=== PATIENT | female | born 1980 | race Caucasian/White ===

== ENCOUNTER → 2017-01-07 | Outpatient (CLI) | payer BC ==
[~2017-01-07] MED LIST: BUPR-79 PO; BUSP1TAB46 PO; NIFE30TA83 PO
--- NOTE | 2017-01-07 11:55 | DIAGNOSTIC IMAGING REPORT ---
CHEST 2 VIEWS ROUTINE HISTORY: 36 years-old Female N20.0 Nephrolithiasis preoperative exam COMPARISON: CT abdomen and pelvis 12/13/2016 TECHNIQUE: PA and lateral views of the chest FINDINGS: Cardiomediastinal and hilar silhouettes are within normal limits. No pneumothorax, pleural effusion, focal airspace consolidation or overt pulmonary edema. Bones of the chest are grossly intact. Cholecystectomy clips noted. IMPRESSION: No acute cardiopulmonary process. The above report was generated using voice recognition software. It may contain grammatical, syntax or spelling errors. Electronically signed by: Kumar Hunter M.D. 01/07/2017 11:53 AM Dictated Date/Time: 01/07/2017 11:53 AM
[2017-01-07 12:06] LABS: BASO % 0.5 %; BASO ABS # 0.03 K/uL (0-0.2); COMPLETE YES; EOS % 3.7 %; HEMATOCRIT 40.1 % (37-47); IG% 0.2 %; LYMPH % 34.9 %; LYMPH ABS # 2.17 K/uL (1.2-3.4); MEAN CELL VOLUME 90.1 fL (80-100); MEAN CORPUSCULAR HEMOGLOBIN 30.3 pg (25-34); MEAN CORPUSCULAR HGB CONC 33.7 g/dl (32-36); MEAN PLATELET VOLUME 9.9 fL (7.4-10.4); MONO % 7.1 %; NEUT % 53.6 %; PLATELET COUNT 292 K/uL (130-400); RED BLOOD COUNT 4.45 M/uL (4.2-5.4); WHITE BLOOD COUNT 6.21 K/uL (4.8-10.8)
[2017-01-07 12:15] LABS: URINE APPEARANCE CLEAR (CLEAR); URINE BILIRUBIN NEG (NEG); URINE COLOR YELLOW; URINE EPITHELIAL CELL AUTO 20-30 /lpf (0-5); URINE NITRITE NEG (NEG); URINE SPECIFIC GRAVITY 1.026 (1.000-1.030); UROBILINOGEN NEG (NEG)
[2017-01-07 12:22] LABS: MANUAL MICROSCOPIC REQUIRED? NO; REVIEW REQ? NO
[2017-01-07 12:37] LABS: BLOOD UREA NITROGEN 17 mg/dl (7-18); BUN/CREATININE RATIO 20.9 (10-20); CARBON DIOXIDE 28 mmol/L (21-32); CHLORIDE 106 mmol/L (98-107); CREATININE 0.83 mg/dl (0.60-1.20); POTASSIUM 3.6 mmol/L (3.5-5.1); SODIUM 139 mmol/L (136-145)
== END | disposition home or self-care (01) ==
LOC: C.LAB 11:17
PROVIDERS: ATTEND Urology
DX: N20.0 Calculus of kidney (principal)

== ENCOUNTER → 2017-01-20 | Day surgery (SDC) | payer BC ==
[2017-01-03 11:57] VITALS: Ht 165.1 cm; Wt 67.3 kg
[~2017-01-20] VITALS: Ht 165.1 cm; Wt 67.3 kg
[~2017-01-20] MED LIST changes: +ATROPINE SULFATE 0.1 MG/ML 5ML SYR IV PRN; +CIPROFLOXACIN / D5W 400 MG IV SCH; +DEXAMETHASONE SOD INJ 4 MG/ML VIAL ONE; +FENTANYL CITRATE INJ 50 MCG/1 ML 2 ML VIAL IV PRN; +FENTANYL CITRATE INJ 50 MCG/1 ML 2 ML VIAL ONE; +HYDR-5688 PO; +HYDROCODONE/ACETAMOPHEN 5/325MG TAB PO PRN; +LABETALOL HCL IV 5 MG/ML 20ML IV PRN; +LACTATED RINGER'S 1000ML 1,000 ML IV SCH; +LIDOCAINE HCL 2% 2 ML VIAL (20MG/ML) ONE; +MIDAZOLAM HCL 1 MG/ML 2ML VIAL ONE; +ONDANSETRON INJ 2 MG/ML 2 ML VIAL IV PRN; +ONDANSETRON INJ 2 MG/ML 2 ML VIAL ONE; +PROPOFOL IV EMULSION 10 MG/ML 20 ML VIAL IV ONE; +SODIUM CHLORIDE 0.9% 1000ML 1,000 ML IV SCH
--- NOTE | 2017-01-20 06:57 | History & Physical Bridge Note ---
H&P Re-Evaluation Bridge Note: I have examined the patient, reviewed the History & Physical and in the interval since the performance of the History & Physical I have noted the following changes of clinical significance: No changes noted
--- NOTE | 2017-01-20 07:40 | Discharge Instructions-SurgCtr ---
Discharge Instructions Date of Service Jan 20, 2017. Visit Reason for Visit: Stones Discharge Discharge Diagnosis / Problem: stones Discharge Goals Goal(s): Decrease discomfort, Improve function, Increase independence, Improve disease control Activity Recommendations Activity Limitations: resume your previous activity Lifting Limitations: none Exercise/Sports Limitations: none May Resume Sexual Activity: when tolerated Shower/Bathe: no limitations Driving or Machine Use: no limitations Anesthesia . Post Anesthesia Instructions: If you have had General Anesthesia or IV Sedation: * Do not drive today. * Resume driving when surgeon permits. * Do not make important decisions or sign legal documents today. * Call surgeon for: 1. Temperature elevations greater than 101 degrees F. 2. Uncontrollable pain. 3. Excessive bleeding. 4. Persistent nausea and vomiting. 5. Medication intolerance (nausea, vomiting or rash). * For nausea and vomiting use only clear liquids such as: tea, soda, bouillon until nausea subsides, then gradually increase diet as tolerated. * If you have any concerns or questions, call your surgeon's office. If physician is unavailable and it is an emergency, call 911 or go to the nearest emergency room. . Instructions / Follow-Up Instructions / Follow-Up Please keep your previously scheduled follow up appointment Diet Recommendations Home Diet: no limitations Pending Studies Studies pending at discharge: no Medical Emergencies . Who to Call and When: Medical Emergencies: If at any time you feel your situation is an emergency, please call 911 immediately. . Non-Emergent Contact Non-Emergency issues call your: Urologist Call Non-Emergent contact if: you have a fever, temperature is above 101.5 . . "Provider Documentation" section prepared by Berto Riley. . [place] Drug Monitoring Program Search Results: patient reviewed within database, no issues identified
--- NOTE | 2017-01-20 08:03 | [facility] Operative Report ---
Operative Report Operative Date Jan 20, 2017. Pre-Operative Diagnosis Left Renal Stone Post-Operative Diagnosis Same Procedure(s) Performed Left Extracorporeal Shock Wave Lithotripsy Surgeon Dr. Cem Martin Certified Nurse Midwife Surgeon(s) None Estimated Blood Loss 0 mL Findings Left renal stone Specimens None Drains none Anesthesia Gen. Complication(s) None Disposition Recovery Room / PACU (stable) Indications Left renal stone Description of Procedure The patient was identified in the preoperative holding area, appropriate informed consent was reviewed and completed and the patient was transported to the operating suite. Upon arrival appropriate preoperative antibiotics were administered and general anesthesia induced. The patient was placed in supine position and the stone was localized under fluoroscopy. A total of 2500 shocks were delivered to the stone. There appeared to be good fragmentation of the stone. Details of this procedure can be found on the [facility] information sheet. At the conclusion of the case the patient was extubated and taken to the PACU in stable condition. There were no complications. I attest to the content of the Intraoperative Record and any orders documented therein. Any exceptions are noted below.
[2017-01-20 08:40] VITALS: TEMP 36.4
[2017-01-20 09:11] VITALS: BP 120/77; PULSE 88; O2SAT 97
--- NOTE | 2017-01-20 09:22 | Anesthesia Progress Nt - [facility] ---
Anesthesia Post Op Note Date & Time Jan 20, 2017 at 09:22 Vital Signs Vital Signs Past 12 Hours Date Time Temp Pulse Resp B/P (MAP) Pulse Ox O2 Delivery O2 Flow Rate FiO2 01/20/17 09:11 88 16 120/77 (91) 97 Room Air 01/20/17 08:40 36.4 93 16 119/84 (96) 99 Room Air 01/20/17 08:33 92 13 01/20/17 08:33 90 13 97 01/20/17 08:31 123/90 01/20/17 08:28 95 16 01/20/17 08:28 36.8 88 16 119/80 96 Room Air 01/20/17 08:28 94 16 96 01/20/17 08:27 94 15 01/20/17 08:27 92 15 119/80 97 01/20/17 08:22 88 18 100 01/20/17 08:22 88 18 01/20/17 08:21 124/81 01/20/17 08:17 87 17 01/20/17 08:17 88 17 100 01/20/17 08:16 109/83 01/20/17 08:12 91 21 100 01/20/17 08:12 91 21 01/20/17 08:11 123/83 01/20/17 08:08 126/81 01/20/17 08:07 36.6 93 16 123/83 98 Mask 8 01/20/17 08:07 93 01/20/17 08:07 93 99 01/20/17 06:50 36.8 97 18 119/85 (96) 98 Room Air Notes Mental Status: alert / awake / arousable, participated in evaluation Pt Amnestic to Procedure: Yes Nausea / Vomiting: adequately controlled Pain: adequately controlled Airway Patency, RR, SpO2: stable & adequate BP & HR: stable & adequate Hydration State: stable & adequate Anesthetic Complications: no major complications apparent
== END | disposition home or self-care (01) ==
LOC: X.SURG 06:36
PROVIDERS: ATTEND Urology
DX: N20.0 Calculus of kidney (principal); I10 Essential (primary) hypertension; Z79.899 Other long term (current) drug therapy

== ENCOUNTER → 2017-01-20 | Outpatient (CLI) | payer BC ==
[~2017-01-20] MED LIST changes: -ATROPINE SULFATE 0.1 MG/ML 5ML SYR IV PRN; -CIPROFLOXACIN / D5W 400 MG IV SCH; -DEXAMETHASONE SOD INJ 4 MG/ML VIAL ONE; -FENTANYL CITRATE INJ 50 MCG/1 ML 2 ML VIAL IV PRN; -FENTANYL CITRATE INJ 50 MCG/1 ML 2 ML VIAL ONE; -HYDROCODONE/ACETAMOPHEN 5/325MG TAB PO PRN; -LABETALOL HCL IV 5 MG/ML 20ML IV PRN; -LACTATED RINGER'S 1000ML 1,000 ML IV SCH; -LIDOCAINE HCL 2% 2 ML VIAL (20MG/ML) ONE; -MIDAZOLAM HCL 1 MG/ML 2ML VIAL ONE; -ONDANSETRON INJ 2 MG/ML 2 ML VIAL IV PRN; -ONDANSETRON INJ 2 MG/ML 2 ML VIAL ONE; -PROPOFOL IV EMULSION 10 MG/ML 20 ML VIAL IV ONE; -SODIUM CHLORIDE 0.9% 1000ML 1,000 ML IV SCH
--- NOTE | 2017-01-20 06:55 | DIAGNOSTIC IMAGING REPORT ---
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 Postoperative changes overlying the right superior sacrum. Kidneys and renal shadows are obscured due to overlying bowel content. The calcification seen in the patient's prior CT study are not appreciated most likely due to overlap artifact. Several pelvic vascular calcifications unchanged in the prior study. IMPRESSION: 1. Nonobstructive bowel pattern. 2. Nonvisibility of the kidneys due to overlying bowel content. The above report was generated using voice recognition software. It may contain grammatical, syntax or spelling errors. Electronically signed by: Ezio Argueta M.D. 01/20/2017 6:54 AM Dictated Date/Time: 01/20/2017 6:52 AM
== END | disposition home or self-care (01) ==
LOC: C.RAD 05:47
PROVIDERS: ATTEND Urology
DX: N20.0 Calculus of kidney (principal)

== ENCOUNTER → 2017-02-08 | Outpatient (CLI) | payer BC | END | disposition home or self-care (01) | LOC: C.LABSPEC 10:44 | PROVIDERS: ATTEND Urology | DX: N20.0 Calculus of kidney (principal) ==

== ENCOUNTER → 2017-02-08 | Outpatient (CLI) | payer BC ==
--- NOTE | 2017-02-08 16:01 | DIAGNOSTIC IMAGING REPORT ---
KUB CLINICAL HISTORY: 36 years-old Female presenting with N20.0 [id number], left nephrolithiasis. TECHNIQUE: Single supine view of the abdomen was obtained. COMPARISON: 01/20/[address] from 12/13/2016. FINDINGS: Cholecystectomy clips noted. Moderate stool burden throughout the right and transverse colon. Mottled lucency in the epigastrium consistent with gastric contents. Nonobstructive bowel gas pattern. No gross pneumoperitoneum. Allowing for bowel gas and stool, bilateral renal calculi are barely visible. No gross evidence of calcifications along the courses of the ureters. Stable distribution of pelvic phleboliths. Surgical clips noted in the right lower quadrant likely from prior appendectomy. Osseous structures normal. Lung bases clear. IMPRESSION: 1. Faintly visible bilateral nephrolithiasis. No radiographic evidence of ureteral calculi. Electronically signed by: Farooq Oconnell M.D. 02/08/2017 4:00 PM Dictated Date/Time: 02/08/2017 3:57 PM
== END | disposition home or self-care (01) ==
LOC: C.RAD 15:15
PROVIDERS: ATTEND Urology
DX: N20.0 Calculus of kidney (principal)

== ENCOUNTER → 2017-03-27 | Outpatient (CLI) | payer BC ==
[~2017-03-27] MED LIST changes: +OPTIRAY 320 IV PRN
--- NOTE | 2017-03-27 11:03 | DIAGNOSTIC IMAGING REPORT ---
CT UROGRAM CLINICAL HISTORY: Hematuria. Nephrolithiasis. COMPARISON STUDY: Abdominal CT dated 12/13/2016. TECHNIQUE: Before and following the IV administration of 120 cc of Optiray 320, CT urogram of the abdomen and pelvis is performed from the lung bases to the proximal femora. Images are reviewed in the axial, sagittal, and coronal planes. IV contrast was administered without complication. A dose lowering technique was utilized adhering to the principles of ALARA. CT DOSE: 1437.24 mGycm FINDINGS: Lung bases: The heart is normal in size and without pericardial effusion. The lung bases are clear. Liver: The contrast-enhanced liver is normal in size, contour, and attenuation. There is no intrahepatic biliary ductal dilatation. The hepatic veins and portal veins are patent. Gallbladder: Surgically absent noting clips in the gallbladder fossa. Spleen: Normal in size and attenuation. Pancreas: Unremarkable. Adrenal glands: Unremarkable. Kidneys and ureters: The contrast enhanced kidneys are normal in size and without hydronephrosis. There is a 3 mm nonobstructing calculus in the lower pole of the right kidney. There are least 2 nonobstructing left renal calculi which measure up to 7 mm. The kidneys enhance and excrete symmetrically. There is no enhancing renal cortical mass lesion identified. A 1.4 cm simple cyst is identified in the interpolar right kidney. There is no evidence of urothelial lesion within the renal pelvis bilaterally or along the course of either ureter. The distal ureters are not well opacified by excreted contrast. Abdominal vasculature: The abdominal aorta is normal in course and caliber. Bowel: There is mild wall thickening and hyperemia seen involving the mucosa of the mid to distal descending colon as well as the rectosigmoid colon. Productive changes are seen in the surrounding fat. Submucosal fat deposition is seen throughout the proximal colon and in the distal small bowel. This is nonspecific but suggests chronic inflammation. No bowel obstruction is seen. The appendix is not identified and reported surgically absent. Peritoneum: There is no intraperitoneal free air or abdominal ascites. There is a small fat-containing umbilical hernia. Lymphadenopathy: None. Pelvic viscera: The bladder is decompressed and not well assessed. Small uterine fibroids are questioned. The adnexa are normal as visualized noting numerous bilateral ovarian follicles. A tampon is in place. Skeletal structures: A small hemangioma is noted in the body of L1. No lytic or blastic lesions are seen. IMPRESSION: 1. Bilateral nonobstructing renal calculi. 2. There is no enhancing renal cortical mass. There is no evidence of urothelial lesion within the renal pelvis bilaterally or along the course of the ureters. 3. The bladder was decompressed and not well evaluated. 4. Findings suggest a nonspecific colitis of the left colon. This is likely on an infectious or inflammatory basis. Clinical correlation will be required. 5. Suspect small uterine fibroids. 6. Additional findings as above. Electronically signed by: Frank Thomas M.D. 03/27/2017 11:02 AM Dictated Date/Time: 03/27/2017 10:51 AM
== END | disposition home or self-care (01) ==
LOC: C.CTS 10:08
PROVIDERS: ATTEND Urology
DX: N20.0 Calculus of kidney (principal); R31.9 Hematuria, unspecified; R93.3 Abnormal findings on diagnostic imaging of other parts of digestive tract; R93.8 Abnormal findings on diagnostic imaging of other specified body structures